=== PATIENT | female | born 1955 | race Caucasian/White ===

== ENCOUNTER 2017-04-01 14:05 | Day surgery (SDC) | payer OTHER ==
[~2017-04-01] VITALS: Ht 160 cm; Wt 92.5 kg
[~2017-04-01 14:05] MED LIST: 0.9% Sodium Chloride 1,000 ML IV SCH; BUPR150T12 PO; ESCI20TA38 PO; HYDR12.55 PO; OMEP20TA86 PO; PRAV20TA2 PO; Sodium Chloride LOK Flush 10 mL Syringe IV PRN; fentaNYL-PF 50 mCg/mL 2 mL Inj IVPUSH PRN
[2017-04-01 14:46] VITALS: BP 143/81; PULSE 80; RESP 16; O2SAT 97
[2017-04-01 16:21] VITALS: BP 134/90; PULSE 86; RESP 14; O2SAT 94
[2017-04-01 16:28] VITALS: BP 137/75; PULSE 79; RESP 14; O2SAT 96
[2017-04-01 16:33] VITALS: BP 123/80; PULSE 85; RESP 14; O2SAT 98
--- NOTE | 2017-04-01 19:48 | ENDO ---
[address] [address] ENDOSCOPY PROCEDURE PATIENT: SARIKA JAIME : 1955 MR#: [id number] ADMIT: 04/01/2017 JOB ID: [id number] DATE: 04/01/2017 PROCEDURE: Colonoscopy. INDICATIONS: Screening. Patient's ASA classification is two. Mallampati score is two. MEDICATIONS: Versed 5 mg, fentanyl 125 mcg. INSTRUMENT USED: PCF H 180 AL. PREPARATION QUALITY: Fair. PROCEDURE DETAILS: After informed consent was obtained, the patient was brought to the GI suite, where she was placed on oxygen via nasal cannula and monitored with continuous pulse oximeter, telemetry, and blood pressure monitoring. A time-out was performed, then she was placed in the left lateral decubitus position and medications were administered for sedation. A digital rectal exam was performed which was unremarkable. The colonoscope was then inserted into the rectum and advanced under direct visualization to the cecum, which was identified by the presence of the ileocecal valve and the appendiceal orifice. Once the cecum was reached, the colonoscope was withdrawn back into the rectum as the mucosa and lumen were examined. In the rectum, retroflexion was performed. Following retroflexion, the remaining air in the rectum was suctioned and the procedure was completed. FINDINGS: 1. Cecal polyp which was diminutive, which was removed cold biopsy forceps. 2. Diminutive polyp in the ascending colon, which was removed with cold biopsy forceps. IMPRESSION: 1. Cecal polyp. 2. Ascending colon polyp. 3. Otherwise normal exam from rectum to cecum. RECOMMENDATIONS: Repeat colonoscopy pending polyp pathology results. COMPLICATIONS: None. ESTIMATED BLOOD LOSS: Less than 5 mL.
--- NOTE | 2017-04-05 11:23 | PATH ---
SURGICAL PATHOLOGY Attending Physician:Pao Pena CASE STATUS: Signed Out PATIENT NAME: SARIKA JAIME PID: [id number] : 1955 DATE COLLECTED:04/01/2017 00:00 SPECIMEN: 1: Colon, Polyp 2: Colon, Polyp CLINICAL HISTORY: 1). CECUM POLYP 2). ASCENDING COLON POLYP FINAL DIAGNOSIS: 1.CECUM POLYP: POLYPOID-SHAPED FRAGMENT OF COLON MUCOSA CONSISTENT WITH MUCOSAL POLYPOID REDUNDANCY. Negative for evidence of neoplasm and hyperplasia on multiple serial sections. 2.ASCENDING COLON POLYP: SESSILE SERRATED ADENOMA. ICD10 D12.2 GROSS DESCRIPTION: The specimens are received in formalin, labeled with the patient's name, and sublabeled as the following: (1) cecum polyp; (2) of ascending colon polyp. (1) The specimen consists of a fragment of valdez-white glistening rubbery semitranslucent tissue (0.3 x 0.2 x 0.1 cm). Section code: (1A) tissue. Specimen entirely submitted. (2) The specimen consists of a fragment of valdez-white glistening rubbery semitranslucent tissue (0.2 x 0.1 x 0.1 cm). Section code: (2A) tissue. Specimen entirely submitted. 04/03/17 MICRO DESCRIPTION: See diagnosis. ICD-9 CODES: CPT CODES: 1: 99087 2: 89233 Electronically Signed Out Quentin Bright MD [facility] Pathology [facility] [address], [place] [address] Technical component performed at [facility], [facility] [address], [place], [address]
== END 2017-04-01 23:59 | disposition home or self-care (01) ==
LOC: END 14:05
PROVIDERS: ATTEND Internal Medicine Gastroenterology
DX: Z12.11 Encounter for screening for malignant neoplasm of colon (principal); D12.0 Benign neoplasm of cecum; D12.2 Benign neoplasm of ascending colon; Z85.3 Personal history of malignant neoplasm of breast; I10 Essential (primary) hypertension; K21.9 Gastro-esophageal reflux disease without esophagitis
CPT/HCPCS: 45380; 99153; G0500; J2250; J3010; J7030